=== PATIENT | male | born 1945 | race African-American/Black ===

== ENCOUNTER 2023-09-06 02:29 | Inpatient (IN) | payer OTHER ==
[2023-09-06] MEDS: SODIUM CHLORIDE 0.9% 500 ML INFUS.BAG IV ONE ×2 (06:37→07:18)
[2023-09-06] MEDS ORDERED: ACETAMINOPHEN INJECTION 100 ML IVPB ONE ×2 (06:38→07:26)
[2023-09-06 07:16] LABS: POTASSIUM 5.1 mmol/L (3.5-5.1)
[2023-09-06] MEDS: ACETAMINOPHEN 1000 MG/100 ML BAG IVPB ONE (07:17)
[2023-09-06 07:18] LABS: CALCIUM 10.3 mg/dL (8.5-10.1)
[2023-09-06 07:19] LABS: BLOOD UREA NITROGEN 34.4 mg/dL (7-18)
[2023-09-06 07:22] LABS: CREATININE 2.1 mg/dL (0.55-1.3)
[2023-09-06 07:23] LABS: BILIRUBIN,TOTAL 0.7 mg/dL (0.2-1); TOT PROT 8.1 g/dl (6.4-8.2)
[2023-09-06 07:31] LABS: HEMATOCRIT 31.5 % (35.4-49); HEMOGLOBIN 9.8 GM/dL (11.7-16.9); MCH 22.1 pg (25.7-33.7); MCHC 31.3 g/dl (32.0-35.9); MEAN CELL VOLUME 70.8 fl (80-96); MEAN PLT VOLUME 9.1 fl (7.5-11.1); RBC 4.45 M/mm3 (4.00-5.60); RDW 17.8 % (11.9-15.9)
[2023-09-06 07:36] LABS: WHITE BLOOD COUNT 18.9 K/mm3 (4.0-10.0)
[2023-09-06 08:45] LABS: URINE APPEARANCE TURBID; URINE BILIRUBIN NEGATIVE (NEGATIVE); URINE COLOR RED; URINE GLUCOSE (UA) NEGATIVE (NEGATIVE); URINE KETONE NEGATIVE (NEGATIVE); URINE PROTEIN 3+ (NEGATIVE)
[2023-09-06 08:46] LABS: URINE LEUK ESTERASE 4+ (NEGATIVE); URINE NITRITE NEGATIVE (NEGATIVE); URINE UROBILINOGEN 0.2 mg/dL (0.2-1.0)
[2023-09-06 09:00] LABS: ANISOCYTOSIS 0; HELMET CELLS 0; HOWELL-JOLLY BODIES 0; MACROCYTOSIS 0; OVALOCYTE 0; ROULEAU 0; SICKELED CELLS 0; TARGET CELLS 0; TEAR DROP CELLS 0; TOXIC GRANULATION 0
[2023-09-06 09:04] LABS: PLATELET COUNT 313 10^3/uL (134-434)
[2023-09-06] MEDS ORDERED: CEFTRIAXONE 1 GM/50 ML BAG ONE (09:43)
[2023-09-06] MEDS: CEFTRIAXONE 1 GM in DEXTROSE 5%-WATER - 100 ML IVPB ONE (09:45)
[2023-09-06] MEDS: CEFTRIAXONE 1 GM in DEXTROSE 5%-WATER - 50 ML IVPB SCH (11:30)
[2023-09-06] MEDS ORDERED: ACETAMINOPHEN 1000 MG/100 ML BAG IVPB PRN (11:40)
[2023-09-06] MEDS ORDERED: LIDOCAINE HCL 2% JELLY 6 ML TP ONE ×2 (14:26→15:23)
[2023-09-06] MEDS ORDERED: MORPHINE SULFATE 2 MG/ML SYRINGE IVPUSH PRN (15:55)
[2023-09-06] MEDS: LIDOCAINE HCL 2% JELLY 6 ML TP ONE (17:15)
[2023-09-06] MEDS: METOPROLOL TARTRATE 50 MG TABLET (FP) PO SCH (21:58)
[2023-09-07 07:40] LABS: HEMATOCRIT 30.2 % (35.4-49); HEMOGLOBIN 9.7 GM/dL (11.7-16.9); MCH 22.8 pg (25.7-33.7); MEAN CELL VOLUME 71.1 fl (80-96); MEAN PLT VOLUME 8.5 fl (7.5-11.1); PLATELET COUNT 272 10^3/uL (134-434); RBC 4.25 M/mm3 (4.00-5.60); RDW 17.3 % (11.9-15.9); WHITE BLOOD COUNT 10.4 K/mm3 (4.0-10.0)
[2023-09-07 07:47] LABS: INR 1.18 (0.83-1.09); PROTHROMBIN TIME (PATIENT) 13.3 SEC (9.7-13.0)
[2023-09-07 07:49] LABS: ACTIVATED PTT 37.4 SECONDS (25.2-36.5)
[2023-09-07 08:03] LABS: POTASSIUM 4.5 mmol/L (3.5-5.1)
[2023-09-07 08:06] LABS: ALBUMIN 2.5 g/dl (3.4-5.0); BLOOD UREA NITROGEN 26.2 mg/dL (7-18); CALCIUM 9.5 mg/dL (8.5-10.1); MAGNESIUM 1.7 mg/dL (1.8-2.4)
[2023-09-07 08:09] LABS: CREATININE 1.6 mg/dL (0.55-1.3); PHOSPHOROUS 3.5 mg/dL (2.5-4.9)
[2023-09-07 08:11] LABS: BILIRUBIN,TOTAL 0.7 mg/dL (0.2-1); TOT PROT 7.1 g/dl (6.4-8.2)
[2023-09-07] MEDS: PANTOPRAZOLE 40 MG TABLET PO SCH (11:13)
[2023-09-07] MEDS: amLODIPine BESYLATE 5 MG TABLET (FP) PO SCH (11:13)
[2023-09-07 13:23] VITALS: BMI 18.9
[2023-09-07] MEDS: DEXTROSE 5%-0.45% SALINE 1,000 ML IV SCH (14:36)
[2023-09-07] MEDS: MAGNESIUM SULF 50% (8.12 MEQ/2 ML-1 GM VIAL) IVPB ONE (16:50)
[2023-09-08 08:23] LABS: POTASSIUM 3.9 mmol/L (3.5-5.1)
[2023-09-08 08:25] LABS: BASO % 0.4 % (0-2.0); CALCIUM 8.8 mg/dL (8.5-10.1); EOS % 1.9 % (0-4.5); HEMATOCRIT 31.8 % (35.4-49); HEMOGLOBIN 9.7 GM/dL (11.7-16.9); LYMPH % 20.5 % (8-40); MCH 21.8 pg (25.7-33.7); MCHC 30.7 g/dl (32.0-35.9); MEAN CELL VOLUME 71.2 fl (80-96); MEAN PLT VOLUME 8.4 fl (7.5-11.1); MONO % 8.2 % (3.8-10.2); PLATELET COUNT 287 10^3/uL (134-434); RBC 4.47 M/mm3 (4.00-5.60); WHITE BLOOD COUNT 11.1 K/mm3 (4.0-10.0)
[2023-09-08 08:26] LABS: ALBUMIN 2.4 g/dl (3.4-5.0); BLOOD UREA NITROGEN 18.6 mg/dL (7-18)
[2023-09-08 08:29] LABS: CREATININE 1.4 mg/dL (0.55-1.3); PHOSPHOROUS 2.8 mg/dL (2.5-4.9)
[2023-09-08 08:30] LABS: BILIRUBIN,TOTAL 0.4 mg/dL (0.2-1); TOT PROT 7.1 g/dl (6.4-8.2)
[2023-09-08] MEDS ORDERED: ONDANSETRON 4 MG/2 ML VIAL IVPUSH PRN (08:56)
[2023-09-08 10:06] LABS: ANISOCYTOSIS 2+; MACROCYTOSIS 0; OVALOCYTE 1+
[2023-09-08] MEDS: LACTATED RINGERS SOLUTION 1,000 ML IV SCH (10:14)
[2023-09-08] MEDS ORDERED: LIDOCAINE HCL/PF 2% SDV 5ML VIAL ONE (11:27)
[2023-09-08] MEDS ORDERED: ONDANSETRON 4 MG/2 ML VIAL ONE (11:27)
[2023-09-08] MEDS ORDERED: DEXAMETHASONE SOD PHOSPHATE 4 MG/1 ML VIAL ONE (11:27)
[2023-09-08] MEDS ORDERED: KETOROLAC TROMETHAMINE 30 MG/1 ML VIAL ONE (11:27)
[2023-09-08] MEDS ORDERED: PROPOFOL 20 ML ONE (11:29)
[2023-09-08] MEDS ORDERED: SUCCINYLCHOLINE CHLORIDE 200 MG/10 ML SYRINGE ONE (11:32)
[2023-09-08] MEDS: SODIUM CHLORIDE 0.45% 1,000 ML IV SCH (18:57)
[2023-09-09 07:29] LABS: BASO % 0.4 % (0-2.0); EOS % 0.6 % (0-4.5); HEMATOCRIT 28.3 % (35.4-49); HEMOGLOBIN 8.7 GM/dL (11.7-16.9); LYMPH % 21.9 % (8-40); MCH 21.6 pg (25.7-33.7); MCHC 30.7 g/dl (32.0-35.9); MEAN CELL VOLUME 70.3 fl (80-96); MEAN PLT VOLUME 8.5 fl (7.5-11.1); MONO % 11.6 % (3.8-10.2); NEUT % 65.5 % (42.8-82.8); PLATELET COUNT 273 10^3/uL (134-434); RBC 4.03 M/mm3 (4.00-5.60); RDW 16.7 % (11.9-15.9); WHITE BLOOD COUNT 12.5 K/mm3 (4.0-10.0)
[2023-09-09 08:26] LABS: POTASSIUM 4.3 mmol/L (3.5-5.1)
[2023-09-09 08:30] LABS: BLOOD UREA NITROGEN 14.5 mg/dL (7-18)
[2023-09-09 08:36] LABS: CREATININE 1.4 mg/dL (0.55-1.3)
[2023-09-09] MEDS: IRON SUCROSE INJECTION 200 MG in SODIUM CHLORIDE 100 ML IVPB ONE (19:48)
[2023-09-10] MEDS: ACETAMINOPHEN 1000 MG/100 ML BAG IVPB ONE (21:08)
[2023-09-11 05:50] VITALS: RESP 18
[2023-09-11 09:37] LABS: EPI CELLS 1 /uL (0-25.1); HYALINE CASTS 1 /uL (0-3.1); URINE APPEARANCE CLOUDY; URINE BACTERIA 35 /uL (0-1359); URINE BILIRUBIN NEGATIVE (NEGATIVE); URINE COLOR YELLOW; URINE GLUCOSE (UA) NEGATIVE (NEGATIVE); URINE KETONE NEGATIVE (NEGATIVE); URINE LEUK ESTERASE 3+ (NEGATIVE); URINE NITRITE NEGATIVE (NEGATIVE); URINE PROTEIN TRACE (NEGATIVE); URINE RBC 410 /uL (0-23.9); URINE UROBILINOGEN 0.2 mg/dL (0.2-1.0); URINE WBC 1101 /uL (0-25.8)
[2023-09-11] MEDS: CEFTRIAXONE 1 GM in DEXTROSE 5%-WATER - 50 ML IVPB SCH (11:29)
[2023-09-11 11:54] VITALS: BP 128/59; PULSE 80; TEMP 97.5
[2023-09-11] MEDS ORDERED: ACETAMINOPHEN 325 MG TABLET (FP) PO PRN (16:37)
[2023-09-12] MEDS ORDERED: CEFTRIAXONE 1 GM in DEXTROSE 5%-WATER - 50 ML IVPB SCH (10:00)
== END 2023-09-11 16:31 | disposition home or self-care (01) | DRG 696 ==
LOC: JER 02:29 → JERBED 09:25 → OBSVTOIN 10:58 → J7W 17:35
PROVIDERS: ADMIT Internal Medicine; ATTEND Internal Medicine
DX: R33.9 Retention of urine, unspecified (principal); N13.6 Pyonephrosis; N17.9 Acute kidney failure, unspecified; N40.1 Benign prostatic hyperplasia with lower urinary tract symptoms; R31.0 Gross hematuria; I10 Essential (primary) hypertension; K57.90 Diverticulosis of intestine, part unspecified, without perforation or abscess without bleeding; K44.9 Diaphragmatic hernia without obstruction or gangrene; M06.9 Rheumatoid arthritis, unspecified; D64.9 Anemia, unspecified; R50.9 Fever, unspecified; N35.819 Other urethral stricture, male, unspecified site; C61 Malignant neoplasm of prostate; J47.9 Bronchiectasis, uncomplicated; Z85.46 Personal history of malignant neoplasm of prostate
CPT/HCPCS: 36415; 74176-TC; 80048; 80053; 81003; 81015; 83735; 84100; 85025; 85027; 85610; 85730; 86850; 86900; 86901; 87086; 87186; 97116-GP; 97162-GP; 99285-25; G0378; J0131; J1756

== ENCOUNTER 2023-09-18 13:30 | Emergency (ER) | payer OTHER ==
[2023-09-18 13:42] VITALS: TEMP 99; BMI 21.1
[2023-09-18] MEDS ORDERED: ACETAMINOPHEN INJECTION 100 ML IVPB ONE (15:25)
[2023-09-18] MEDS: ACETAMINOPHEN 1000 MG/100 ML BAG IVPB ONE (15:29)
[2023-09-18 15:30] LABS: BASO % 0.6 % (0-2.0); EOS % 1.1 % (0-4.5); HEMATOCRIT 29.2 % (35.4-49); HEMOGLOBIN 9.1 GM/dL (11.7-16.9); LYMPH % 16.7 % (8-40); MCH 21.4 pg (25.7-33.7); MCHC 31.1 g/dl (32.0-35.9); MEAN CELL VOLUME 68.7 fl (80-96); MEAN PLT VOLUME 7.6 fl (7.5-11.1); MONO % 7.4 % (3.8-10.2); NEUT % 74.2 % (42.8-82.8); PLATELET COUNT 389 10^3/uL (134-434); RBC 4.25 M/mm3 (4.00-5.60); RDW 18.3 % (11.9-15.9); WHITE BLOOD COUNT 10.7 K/mm3 (4.0-10.0)
[2023-09-18 15:36] LABS: INR 1.1 (0.83-1.09); PROTHROMBIN TIME (PATIENT) 12.6 SEC (9.7-13.0)
[2023-09-18 15:39] LABS: ACTIVATED PTT 35.5 SECONDS (25.2-36.5)
[2023-09-18 15:49] LABS: ANISOCYTOSIS 3+; MACROCYTOSIS 0
[2023-09-18 15:51] LABS: POTASSIUM 4.9 mmol/L (3.5-5.1)
[2023-09-18 15:52] LABS: BLOOD UREA NITROGEN 21.9 mg/dL (7-18); CALCIUM 9.7 mg/dL (8.5-10.1)
[2023-09-18 15:54] LABS: ALBUMIN 2.7 g/dl (3.4-5.0)
[2023-09-18 15:56] LABS: CREATININE 1.8 mg/dL (0.55-1.3)
[2023-09-18 15:57] LABS: BILIRUBIN,TOTAL 0.6 mg/dL (0.2-1); TOT PROT 7.9 g/dl (6.4-8.2)
[2023-09-18] MEDS: SODIUM CHLORIDE 0.9% 500 ML INFUS.BAG IV ONE (16:23)
[2023-09-18 17:53] LABS: EPI CELLS 30 /uL (0-25.1); HYALINE CASTS 2 /uL (0-3.1); PH,URINE 5.5 (5.0-8.0); URINE APPEARANCE CLEAR; URINE BACTERIA 86 /uL (0-1359); URINE BILIRUBIN NEGATIVE (NEGATIVE); URINE COLOR YELLOW; URINE GLUCOSE (UA) NEGATIVE (NEGATIVE); URINE KETONE NEGATIVE (NEGATIVE); URINE LEUK ESTERASE 2+ (NEGATIVE); URINE NITRITE NEGATIVE (NEGATIVE); URINE PROTEIN TRACE (NEGATIVE); URINE RBC 20 /uL (0-23.9); URINE UROBILINOGEN 0.2 mg/dL (0.2-1.0); URINE WBC 174 /uL (0-25.8)
[2023-09-18] MEDS: CEFUROXIME AXETIL 500 MG TABLET PO ONE (18:18)
[2023-09-18 18:27] VITALS: BP 139/67; PULSE 67; RESP 15
== END 2023-09-18 18:42 | disposition home or self-care (01) ==
LOC: JER 13:30
PROC: 3E033NZ Introduction of Analgesics, Hypnotics, Sedatives into Peripheral Vein, Percutaneous Approach (ICD-10-PCS; principal; 2023-09-18)
DX: R10.9 Unspecified abdominal pain (principal); R19.7 Diarrhea, unspecified; N39.0 Urinary tract infection, site not specified
CPT/HCPCS: 36415; 80053; 81003; 82272; 83605; 83690; 85025; 85610; 85730; 86850; 86900; 86901; 87086; 99284-25; J0131